=== PATIENT | male | born 1960 | race Caucasian/White ===

== ENCOUNTER → 2017-01-01 | Outpatient (CLI) | payer BC ==
[~2017-01-01] MED LIST: ALPR1TAB2 PO; ASPCH81X PO; BUSP15TA70 PO; CLR10 PO; FERR1TAB23 PO; LEVO100T7 PO; LEVO125T4 PO; METO1TAB69 PO; METO50TA7 PO; MONT1TAB3 PO; MULT-506 PO; PANT40TA PO; PSYL1POW4 PO; SIMV20TA2 PO; SIMV40TA2 PO; SPR25 PO; ZOLP10TA PO; [UNRECOGNIZED DRUG - CODE] NAE
[2017-01-01 16:36] LABS: BASO % 0.3 %; BASO ABS # 0.02 K/uL (0-0.2); COMPLETE YES; EOS % 1.9 %; HEMATOCRIT 38.7 % (42-52); IG% 0.2 %; MEAN CELL VOLUME 92.8 fL (80-100); MEAN CORPUSCULAR HEMOGLOBIN 31.2 pg (25-34); MEAN CORPUSCULAR HGB CONC 33.6 g/dl (32-36); MEAN PLATELET VOLUME 9.4 fL (7.4-10.4); MONO % 11.7 %; NEUT % 57.9 %; PLATELET COUNT 293 K/uL (130-400); RED BLOOD COUNT 4.17 M/uL (4.7-6.1); WHITE BLOOD COUNT 6.43 K/uL (4.8-10.8)
== END | disposition home or self-care (01) ==
LOC: C.LABBC 14:22
PROVIDERS: ATTEND Physician Assistant
DX: D64.9 Anemia, unspecified (principal)

== ENCOUNTER → 2017-02-15 | Outpatient (CLI) | payer BC ==
[~2017-02-15] MED LIST changes: -LEVO100T7 PO; -LEVO125T4 PO; +LEVO125T5 PO; +METO100T44 PO; -METO1TAB69 PO; -SIMV20TA2 PO; -[UNRECOGNIZED DRUG - CODE] NAE
[2017-02-15 14:02] LABS: BASO % 0.8 %; BASO ABS # 0.05 K/uL (0-0.2); COMPLETE YES; EOS % 1.7 %; HEMATOCRIT 41.3 % (42-52); IG% 0.2 %; LYMPH % 30.4 %; LYMPH ABS # 1.82 K/uL (1.2-3.4); MEAN CELL VOLUME 95.6 fL (80-100); MEAN CORPUSCULAR HEMOGLOBIN 30.6 pg (25-34); MEAN PLATELET VOLUME 9.5 fL (7.4-10.4); MONO % 8.3 %; NEUT % 58.6 %; PLATELET COUNT 315 K/uL (130-400); RED BLOOD COUNT 4.32 M/uL (4.7-6.1); WHITE BLOOD COUNT 5.99 K/uL (4.8-10.8)
[2017-02-15 14:38] LABS: ALT/SGPT 27 U/L (12-78); BLOOD UREA NITROGEN 26 mg/dl (7-18); BUN/CREATININE RATIO 26.3 (10-20); CARBON DIOXIDE 29 mmol/L (21-32); CHLORIDE 104 mmol/L (98-107); CHOLESTEROL 167 mg/dl (0-200); GLUCOSE 90 mg/dl (70-99); MAGNESIUM 2.1 mg/dl (1.8-2.4); POTASSIUM 4.1 mmol/L (3.5-5.1); SODIUM 140 mmol/L (136-145)
[2017-02-15 14:42] LABS: ALB/GLOB RATIO 1.4 (0.9-2); ALKALINE PHOSPHATASE 70 U/L (45-117); AST/SGOT 20 U/L (15-37); CHOLESTEROL/HDL RATIO 2.7; FERRITIN 87.9 ng/ml (8.0-388.0); HDL CHOLESTEROL 61 mg/dl; LDL CHOLESTEROL CALCULATED 83 mg/dl; TRIGLYCERIDES 113 mg/dl (0-150); VERY LOW DENSITY LIPOPROT CALC 23 mg/dl
[2017-02-15 15:02] LABS: CALCIUM 9.9 mg/dl (8.5-10.1)
== END | disposition home or self-care (01) ==
LOC: C.LABBC 11:13
PROVIDERS: ATTEND Nurse Practitioner Family
DX: E78.00 Pure hypercholesterolemia, unspecified (principal); I10 Essential (primary) hypertension; D64.9 Anemia, unspecified

== ENCOUNTER → 2017-02-17 | Day surgery (SDC) | payer BC ==
[2017-02-12 14:19] VITALS: Ht 188 cm; Wt 95.5 kg
[~2017-02-17] VITALS: Ht 188 cm; Wt 95.5 kg
[~2017-02-17] MED LIST changes: +LIDOCAINE HCL 2% 2 ML VIAL (20MG/ML) ONE; +MIDAZOLAM HCL 1 MG/ML 2ML VIAL ONE; +ONDANSETRON INJ 2 MG/ML 2 ML VIAL ONE; +PROPOFOL IV EMULSION 10 MG/ML 20 ML VIAL IV ONE
[2017-02-17 10:58] VITALS: TEMP 36.4
--- NOTE | 2017-02-17 10:58 | Endo History and Physical ---
History & Physical Date of Service: February 17, 2017. Chief Complaint: gastritis Referring Physician: Dr. Cheyenne Cano History of Present Illness 56 yo CM who presents for EGD secondary to Gastritis. Past Surgical History Hx Cardiac Surgery: No Hx Internal Defibrillator: No Hx Pacemaker: No Hx Abdominal Surgery: No Hx of Implantable Prosthesis: No Hx Post-Op Nausea and Vomiting: No Hx Cancer Surgery: No Hx Thoracic Surgery: No Hx Orthopedic: Yes (LEFT RING FINGER DEBRIDEMENT) Hx Urinary Tract Surgery: Yes (VASECTOMY) Family History None Social History Smoking Status: Former Smoker Hx Substance Use: No Hx Alcohol Use: Yes (BEER 1-2 PER WEEK ) Allergies Coded Allergies: NO KNOWN DRUG ALLERGIES (Verified Allergy, Unknown, ., 02/12/17) Uncoded Allergies: HAY FEVER (Allergy, Unknown, ., 09/14/16) Current Medications Reported Home Medications Medications Dose Route/Sig Max Daily Dose Days Date Category Zocor (Simvastatin) 40 Mg Tab 40 Mg PO QPM 02/12/17 Reported Levothyroxine Sodium 125 Mcg Tab 1 Tab PO QAM 90 02/12/17 Reported Protonix (Pantoprazole Sodium) 40 Mg Tab 40 Mg PO QAM 02/12/17 Reported Metamucil (Psyllium) 28.3 % Pow 1 Dose PO BID 09/14/16 Reported Toprol-Xl (Metoprolol Succinate) 50 Mg Tabcr 50 Mg PO QPM 09/14/16 Reported Buspar (Buspirone Hcl) 15 Mg Tab 15 Mg PO BID 09/14/16 Reported Aspirin Chewable (Aspirin) 81 Mg Chew 81 Mg PO QAM 09/14/16 Reported Iron (Ferrous Sulfate) 325 Mg Tab 325 Mg PO DAILY AFTERNOON 05/25/16 Reported Spironolactone 25 Mg Tab 25 Mg PO BID 10/17/14 Reported Toprol-Xl (Metoprolol Succinate) 100 Mg Tabcr 100 Mg PO QAM 10/17/14 Reported Xanax (Alprazolam) 1 Mg Tab 1 Mg PO Q8 PRN 04/29/13 Reported Claritin (Loratadine) 10 Mg Tab 10 Mg PO QAM 04/29/13 Reported Singulair (Montelukast Sodium) 10 Mg Tab 10 Mg PO QAM 04/29/13 Reported Multivitamin (Multivitamins) Tab 1 Tab PO QAM 04/29/13 Reported Ambien (Zolpidem Tartrate) 10 Mg Tab 10 Mg PO HS 04/29/13 Reported Vital Signs Weight (Kilograms): 95.45 Height (Feet): 6 Height (Inches): 2 Physical Exam General Appearance: WD/WN, no apparent distress Respiratory/Chest: Auscultation: breath sounds normal Cardiovascular: Heart Auscultation: RRR Abdomen: Bowel Sounds: normal Inspection & Palpation: soft, non-distended, no tenderness, guarding & rebound Assessment and Plan Assessment: 56 yo CM who presents for EGD secondary to Gastritis. Plan: Proceed with EGD.
--- NOTE | 2017-02-17 11:57 | Discharge Instructions ---
Endoscopy Patient Instructions Date / Procedure(s) Performed February 17, 2017. EGD Allergy Information Coded Allergies: NO KNOWN DRUG ALLERGIES (Verified Allergy, Unknown, ., 02/12/17) Uncoded Allergies: HAY FEVER (Allergy, Unknown, ., 09/14/16) Discharge Date / Findings February 17, 2017. Gastritis s/p biopsies Medication Instructions Stopped Medication(s): last dose ASA yesterday OK to resume all medications today as prescribed Reported Home Medications Medications Dose Route/Sig Max Daily Dose Days Date Category Zocor (Simvastatin) 40 Mg Tab 40 Mg PO QPM 02/12/17 Reported Levothyroxine Sodium 125 Mcg Tab 1 Tab PO QAM 90 02/12/17 Reported Protonix (Pantoprazole Sodium) 40 Mg Tab 40 Mg PO QAM 02/12/17 Reported Metamucil (Psyllium) 28.3 % Pow 1 Dose PO BID 09/14/16 Reported Toprol-Xl (Metoprolol Succinate) 50 Mg Tabcr 50 Mg PO QPM 09/14/16 Reported Buspar (Buspirone Hcl) 15 Mg Tab 15 Mg PO BID 09/14/16 Reported Aspirin Chewable (Aspirin) 81 Mg Chew 81 Mg PO QAM 09/14/16 Reported Iron (Ferrous Sulfate) 325 Mg Tab 325 Mg PO DAILY AFTERNOON 05/25/16 Reported Spironolactone 25 Mg Tab 25 Mg PO BID 10/17/14 Reported Toprol-Xl (Metoprolol Succinate) 100 Mg Tabcr 100 Mg PO QAM 10/17/14 Reported Xanax (Alprazolam) 1 Mg Tab 1 Mg PO Q8 PRN 04/29/13 Reported Claritin (Loratadine) 10 Mg Tab 10 Mg PO QAM 04/29/13 Reported Singulair (Montelukast Sodium) 10 Mg Tab 10 Mg PO QAM 04/29/13 Reported Multivitamin (Multivitamins) Tab 1 Tab PO QAM 04/29/13 Reported Ambien (Zolpidem Tartrate) 10 Mg Tab 10 Mg PO HS 04/29/13 Reported Provider Instructions Activity Restrictions - No exercising or heavy lifting for 24 hours. - Do not drink alcohol the day of the procedure. - Do not drive a car or operate machinery until the day after the procedure. - Do not make any important decisions or sign important papers in 24 hours after the procedure. Following Day: - Return to full activity which may include returning to work/school. Diet Start your diet with liquids and light foods (jello, soup, juice, toast). Then eat your usual diet if not nauseated. Treatment For Common After Affects For mild abdominal pain, bloating, or excessive gas: - Rest - Eat lightly - Lie on right side Follow-Up Information Follow-up with Dr. Cheyenne Cano as scheduled Anesthesia Information What You Should Know You have had a procedure that required some medicine to reduce anxiety and discomfort. This treatment is called moderate sedation. After receiving the treatment, you may be sleepy, but you will be able to breathe on your own. The effects of the treatment may last for several hours. Follow these instructions along with Activity/Diet recommendations noted above: * Do NOT do anything where dizziness or clumsiness would be dangerous. * Rest quietly at home today, then you can be up and about tomorrow. * Have a responsible person stay with you the rest of today. * You may have had an I.V. today. If so, you may take the dressing off later today. Recommendations Call your doctor if: * Trouble breathing * Continuous vomiting for more than 24 hours * Temperature above 101 degrees * Severe abdominal pain or bloating * Pain not relieved by pain medicine ordered * There is increased drainage or redness from any incision * A large amount of rectal bleeding greater than 2-3 tablespoons. (If you had a polyp/s removed or have hemorrhoids, a small amount of blood - from the rectum is to be expected.) * You have any unanswered questions or concerns. IN THE EVENT OF A SERIOUS EMERGENCY, GO TO THE NEAREST EMERGENCY ROOM Your discharge instructions were prepared by provider Bruce Barron. Patient Instructions Signature Page Ed Galan Patient (or Guardian) Signature/Date: I have read and understand the instructions given to me by my caregivers. Caregiver/RN/Doctor Signature/Date: The above-named patient and/or guardian has received patient instructions on this date. + Original Patient Signature Page (only) stays with chart. Please make copy for patient.
--- NOTE | 2017-02-17 12:02 | GI REPORT ---
Procedure Date: 02/17/2017 11:00 AM Procedure: Upper GI endoscopy Indications: Follow-up of gastritis Medicines: Monitored Anesthesia Care Complications: No immediate complications. Estimated Blood Loss: Estimated blood loss: none. Procedure: Pre-Anesthesia Assessment: - Prior to the procedure, a History and Physical was performed, and patient medications and allergies were reviewed. The patient's tolerance of previous anesthesia was also reviewed. The risks and benefits of the procedure and the sedation options and risks were discussed with the patient. All questions were answered, and informed consent was obtained. Prior Anticoagulants: The patient has taken no previous anticoagulant or antiplatelet agents. ASA Grade Assessment: III - A patient with severe systemic disease. After reviewing the risks and benefits, the patient was deemed in satisfactory condition to undergo the procedure. After obtaining informed consent, the endoscope was passed under direct vision. Throughout the procedure, the patient's blood pressure, pulse, and oxygen saturations were monitored continuously. The scope was introduced through the mouth, and advanced to the second part of duodenum. The upper GI endoscopy was accomplished without difficulty. The patient tolerated the procedure well. Findings: The esophagus was normal. Localized mild inflammation characterized by erythema was found in the gastric antrum. Biopsies were taken with a cold forceps for histology. The examined duodenum was normal. Impression: - Normal esophagus. - Gastritis. Biopsied. - Normal examined duodenum. Recommendation: - Resume previous diet. - Continue present medications. - Await pathology results. - Return to primary care physician as previously scheduled. Bruce Barron DO 02/17/2017 12:02:42 PM This report has been signed electronically. Note Initiated On: 02/17/2017 11:00 AM I attest to the content of the Intraoperative Record and orders documented therein, exceptions below
[2017-02-17 12:20] VITALS: BP 126/71; PULSE 51; O2SAT 100
--- NOTE | 2017-02-17 12:42 | Anesthesiology Progress Note ---
Anesthesia Post Op Note Date & Time February 17, 2017 at 12:41 Vital Signs Pain Intensity: 0 Vital Signs Past 12 Hours Date Time Temp Pulse Resp B/P Pulse Ox O2 Delivery O2 Flow Rate FiO2 02/17/17 12:20 51 18 126/71 100 Room Air 02/17/17 12:05 51 18 124/68 100 Room Air 02/17/17 11:40 55 16 105/59 99 Room Air 02/17/17 10:58 36.4 62 20 131/81 96 Room Air Notes Mental Status: alert / awake / arousable, participated in evaluation Pt Amnestic to Procedure: Yes Nausea / Vomiting: adequately controlled Pain: adequately controlled Airway Patency, RR, SpO2: stable & adequate BP & HR: stable & adequate Hydration State: stable & adequate Anesthetic Complications: no major complications apparent
== END | disposition home or self-care (01) ==
LOC: C.GI 10:26
PROVIDERS: ATTEND Internal Medicine
DX: K29.50 Unspecified chronic gastritis without bleeding (principal); I10 Essential (primary) hypertension; F41.9 Anxiety disorder, unspecified; Z98.52 Vasectomy status; Z87.891 Personal history of nicotine dependence; Z68.27 Body mass index [BMI] 27.0-27.9, adult; Z98.890 Other specified postprocedural states

== ENCOUNTER → 2017-08-09 | Outpatient (CLI) | payer BC ==
[~2017-08-09] MED LIST changes: -LIDOCAINE HCL 2% 2 ML VIAL (20MG/ML) ONE; -MIDAZOLAM HCL 1 MG/ML 2ML VIAL ONE; -ONDANSETRON INJ 2 MG/ML 2 ML VIAL ONE; -PROPOFOL IV EMULSION 10 MG/ML 20 ML VIAL IV ONE
[2017-08-09 13:15] LABS: BASO % 0.4 %; BASO ABS # 0.03 K/uL (0-0.2); COMPLETE YES; EOS % 1.9 %; HEMATOCRIT 39.2 % (42-52); IG% 0.1 %; LYMPH % 22.6 %; LYMPH ABS # 1.55 K/uL (1.2-3.4); MEAN CELL VOLUME 95.1 fL (80-100); MEAN CORPUSCULAR HEMOGLOBIN 30.8 pg (25-34); MEAN CORPUSCULAR HGB CONC 32.4 g/dl (32-36); MEAN PLATELET VOLUME 9.3 fL (7.4-10.4); MONO % 7.4 %; NEUT % 67.6 %; PLATELET COUNT 276 K/uL (130-400); RED BLOOD COUNT 4.12 M/uL (4.7-6.1); WHITE BLOOD COUNT 6.86 K/uL (4.8-10.8)
[2017-08-09 14:15] LABS: ALT/SGPT 26 U/L (12-78); BLOOD UREA NITROGEN 17 mg/dl (7-18); BUN/CREATININE RATIO 15.9 (10-20); CALCIUM 8.6 mg/dl (8.5-10.1); CARBON DIOXIDE 30 mmol/L (21-32); CHLORIDE 105 mmol/L (98-107); CHOLESTEROL 168 mg/dl (0-200); CREATININE 1.04 mg/dl (0.60-1.40); GLUCOSE 93 mg/dl (70-99); MAGNESIUM 1.9 mg/dl (1.8-2.4); POTASSIUM 3.8 mmol/L (3.5-5.1); SODIUM 141 mmol/L (136-145); TRIGLYCERIDES 207 mg/dl (0-150); VERY LOW DENSITY LIPOPROT CALC 41 mg/dl
[2017-08-09 14:24] LABS: ALB/GLOB RATIO 1.2 (0.9-2); ALKALINE PHOSPHATASE 67 U/L (45-117); AST/SGOT 22 U/L (15-37); CHOLESTEROL/HDL RATIO 3.4; FERRITIN 76.4 ng/ml (8.0-388.0); HDL CHOLESTEROL 50 mg/dl; LDL CHOLESTEROL CALCULATED 77 mg/dl; THYROID STIMULATING HORMONE 0.131 uIu/ml (0.300-4.500)
== END | disposition home or self-care (01) ==
LOC: C.LABBC 10:19
PROVIDERS: ATTEND Nurse Practitioner Family
DX: I48.0 Paroxysmal atrial fibrillation (principal); E78.00 Pure hypercholesterolemia, unspecified; D64.9 Anemia, unspecified; K21.9 Gastro-esophageal reflux disease without esophagitis; I10 Essential (primary) hypertension; R94.6 Abnormal results of thyroid function studies